=== PATIENT | male | born 1970 | race Two or more races ===

== ENCOUNTER 2018-12-16 20:08 | Emergency (ER) | payer SELFPAY ==
[~2018-12-16] VITALS: Ht 177.8 cm; Wt 84.8 kg
[2018-12-17] MEDS ORDERED: MVI in SODIUM CHLORIDE 0.9% 1,010 ML ONE (01:04)
[2018-12-17 03:06] VITALS: BP 142/79
[2018-12-17 03:09] LABS: Basophils # (auto) 0 uL; Basophils % (auto) 0.1 % (0.0-2.0); Eosinophils # (auto) 0 uL; Eosinophils % (auto) 0.3 % (0.0-7.0); Hematocrit 48.6 % (41.0-53.0); Hemoglobin 16.3 g/dL (13.5-17.5); Lymphocytes # (auto) 1.1 uL; Lymphocytes % (auto) 9.1 % (10.0-50.0); Mean Corpuscular Hemoglobin 30.6 pg (28.0-32.0); Mean Corpuscular Hgb Conc. 33.5 g/dL (32.0-36.0); Mean Corpuscular Volume 91.2 fL (80.0-100.0); Monocytes # (auto) 0.5 uL; Monocytes % (auto) 4.1 % (0.0-12.0); Neutrophils # (auto) 10.9 uL; Neutrophils % (auto) 86.4 % (37.0-80.0); Platelet Count (auto) 257 10^3/uL (140-450); Red Blood Cells 5.33 10^6/uL (4.5-5.90); White Blood Cell 12.6 10^3/uL (4.4-10.8)
[2018-12-17 03:28] LABS: Albumin 3.7 g/dL (3.4-5.0); BUN/Creatinine Ratio 14.9; Calcium 8.7 mg/dL (8.5-10.1); Magnesium 2.2 mg/dL (1.6-2.6); Potassium 3.9 mmol/L (3.5-5.1)
[2018-12-17 03:30] LABS: Acetaminophen < 2.0 ug/mL (10-30); Bilirubin, Total 0.3 mg/dL (0.2-1.0); Salicylate < 1.7 mg/dL (2.8-20.0); Total Protein 7.2 g/dL (6.4-8.2)
[2018-12-17] MEDS ORDERED: MULTIPLE VITAMIN 10 ML, MAGNESIUM SULF SDV 50% 8 MEQ in SODIUM CHLORIDE 0.9% 1,000 ML IV SCH (12:00)
== END 2018-12-17 03:10 | disposition home or self-care (01) ==
LOC: ER 20:08 → EDBD 20:08 → ER 12-17 03:10
DX: F10.229 Alcohol dependence with intoxication, unspecified (principal); G92 Toxic encephalopathy; F12.90 Cannabis use, unspecified, uncomplicated
CPT/HCPCS: 36415; 71045; 80053; 80320; 80329; 83735; 85025; 94761; 96365; 96366; 99284; J3411; J3475; J7030